=== PATIENT | female | born 1990 | race African-American/Black ===

== ENCOUNTER 2019-11-28 10:10 | Inpatient (IN) | payer OTHER, SELFPAY ==
[2019-11-28] VITALS (59 sets, daily range): BP systolic 71–132; BP diastolic 29–114; PULSE 63–179; RESP 16; TEMP 36.9–37.2; O2SAT 96–100; BMI 38.9
[2019-11-28] MEDS: LACTATED RINGERS 1,000 ML 125 ML IV CONT ×3 (11:10→14:03)
[2019-11-28] MEDS: AMPICILLIN 2 GM/NS 100 ML 2 GM/100 ML BAG IVPB (11:11)
[2019-11-28 11:21] LABS: Basophils Percent Auto 0.3 % (0.2-1.2); Eosinophils Percent Auto 0.5 % (0-4.4); Hematocrit 29.4 % (37.0-47.0); Hemoglobin 9.1 g/dL (12.0-15.0); Immature Granulocyte Absolute 0.03 K/mm3 (0.00-0.031); Immature Granulocyte Percent A 0.8 % (0-0.5); Lymphocytes Absolute Auto 1.21 K/mm3 (0.9-3.2); Lymphocytes Percent Auto 32.3 % (18.3-44.2); Mean Corpuscular Hemoglobin 24.3 pg (26-34); Mean Corpuscular Volume 78.4 fl (80-100); Mean Platelet Volume 10.3 fl (7.4-10.4); Monocytes Absolute Auto 0.3 K/mm3 (0.1-0.6); Monocytes Percent Auto 6.7 % (2.6-8.5); Neutrophils Absolute Auto 2.2 K/mm3 (1.3-6.7); Neutrophils Percent Auto 59.4 % (45.5-73.1); Platelet Count Result 240 k/mm3 (150-375); Red Blood Count 3.75 M/mm3 (4.2-5.4); White Blood Count 3.8 K/mm3 (4.5-10.0)
--- NOTE | 2019-11-28 12:06 | LDADM ---
This patient, Shanti May, was admitted to Labor/Delivery/Recovery 106 on 11/28/19 at 10:10. Plans for labor, pain management and were discussed with patient. Patient/family oriented to hospital policies and general routines including ID bracelet, bed and alarms, visiting hours, pain management, procedures, bathroom and other care routines, personal items, smoking policy, room service/diet and guest tray routines, security routines, and visiting hours. Patient/Family are encouraged to report perceived risks to care and to ask questions if they do not understand what they are told or what they should do. See OBIX for further documentation. Pt. was sent over from office for r/o ROM. ROM plus performed and positive. Clear fluid noted leaking from vagina. Pt. states she has been leaking for 2 days, not sure what time it started. Henok Patton CNM notified of ROM plus positive, orders to admit for labor, start abx, and augment with low dose pitocin.
[2019-11-28] MEDS: OXYTOCIN 30 UNITS/NS 500 ML 30 UNITS/500 ML BAG IV CONT (12:20)
--- NOTE | 2019-11-28 13:36 | P.PNAN_ITS ---
Anes - Eval Pre Procedure Procedure: Labor Pain Management Date/Time: 11/28/19 13:36 Surgeon: Luca Preop Diagnosis: Pain during Labor Pre Op Diagnosis: ROM Patient Data Age: 29 Gender: F Height: 5 ft 8 in Weight: 116 kg Last Vital Signs Temp 98.9 F 11/28/19 11:11 Pulse 77 11/28/19 13:00 BP 110/73 11/28/19 13:00 Allergies Allergy/AdvReac Type Severity Reaction Status Date / Time No Known Allergies Allergy Verified 11/11/19 12:30 Laboratory Tests 11/28/19 11/28/19 11/28/19 10:51 10:51 10:51 WBC 3.8 K/mm3 L K/mm3 (4.5-10.0) RBC 3.75 M/mm3 L M/mm3 (4.2-5.4) Hgb 9.1 g/dL L g/dL (12.0-15.0) Hct 29.4 % L % (37.0-47.0) MCV 78.4 fl L fl (80-100) MCH 24.3 pg L pg (26-34) MCHC 31.0 g/dl L g/dl (32-36) RDW 15.0 % H % (11.5-14.5) Plt Count 240 k/mm3 k/mm3 (150-375) MPV 10.3 fl fl (7.4-10.4) Immature Gran % (Auto) 0.8 % H % (0-0.5) Neut % (Auto) 59.4 % % (45.5-73.1) Lymph % (Auto) 32.3 % % (18.3-44.2) [place] % (Auto) 6.7 % % (2.6-8.5) Eos % (Auto) 0.5 % % (0-4.4) Baso % (Auto) 0.3 % % (0.2-1.2) Lymph # (Auto) 1.21 K/mm3 K/mm3 (0.9-3.2) [place] # (Auto) 0.3 K/mm3 K/mm3 (0.1-0.6) Eos # (Auto) 0.0 K/mm3 K/mm3 (0-0.3) Baso # (Auto) 0.0 K/mm3 K/mm3 (0.0-0.1) Abs Immat Gran (auto) 0.03 K/mm3 K/mm3 (0.00-0.031) Absolute Neuts (auto) 2.2 K/mm3 K/mm3 (1.3-6.7) Absolute Nucleated RBC 0.0 K/mm3 K/mm3 (0.0-0.012) Nucleated RBC % 0.0 % % (0.0-0.2) RPR Pending Blood Type AB Positive Antibody Screen Negative : gestational age (edc 12/11/19) Patient hx anesthesia problems: none Family hx anesthesia problems: none PMFSH Past Medical History Medical History (Updated 11/28/19 @ 13:36 by Hannah Doran CRNA) Obesity Tobacco abuse Family History Family History (Updated 11/11/19 @ 12:32 by Arun Naranjo RN) Other No pertinent family history Social History Social History Smoking status: Former smoker Substance use: never Gender identity (if verbalized by the patient): Female Sexual Orientation (if Verbalized by the Patient): Straight or Heterosexual Spiritual care concerns: No Exam Day of Procedure 11/28/19 13:36
[2019-11-28] MEDS: AMPICILLIN 1 GM/NS 50 ML 1 GM/50 ML BAG IVPB (15:10)
--- NOTE | 2019-11-28 17:37 | PM.OBPRVD ---
OB - Delivery Note Procedure Delivery date: 11/28/19 events: Prolonged Rupture of Membrane Intrapartal events: None Induction method: none Delivery augmentation: pitocin Delivery monitor: external FHT and external uterine Route of delivery: Episiotomy description: None Laceration description: None Estimated blood loss (mL): 112 Anesthesia type: Epidural Baby Date of : 11/28/19 Time of : 17:09 Weeks of gestation at delivery: 38 gender: Male Weight (pounds): 6 Weight (ounces): 7 presentation: vertex position: Left Occiput Anterior Placenta delivery description: Spontaneous cord vessel description: 3 Vessels, Nuchal Cord and Loose (delivered through) score one minute: 8 score five minutes: 9
[2019-11-28] MEDS: OXYTOCIN 30 UNITS/NS 500 ML 30 UNITS/500 ML BAG 125 UNITS IV CONT (17:54)
[2019-11-28] MEDS: LORATADINE 10 MG TABLET PO (18:43)
--- NOTE | 2019-11-28 19:44 | OBPPTRN ---
Patient transferred to post room #288 via wheelchair with in crib. Support person present. Oriented to unit, room, information board, rooming in, admission packet and security measures. Patient verbalizes understanding.
[2019-11-29] MEDS: IBUPROFEN 600 MG TABLET PO ×3 (00:28→15:28)
--- NOTE | 2019-11-29 05:25 | PM.OBPNVD ---
OB - PN: Subj Subjective Date/time seen: 11/29/19 05:25 Patient comments: no complaints, pain well controlled and other (Lochia similar to menses) [place] baby status: doing well OB - PN: Obj Data Labs CBC & Chem 7: 11/28/19 10:51 Labs: Laboratory Results - last 24 hr 11/28/19 11/28/19 10:51 10:51 WBC 3.8 L RBC 3.75 L Hgb 9.1 L Hct 29.4 L MCV 78.4 L MCH 24.3 L MCHC 31.0 L RDW 15.0 H Plt Count 240 MPV 10.3 Immature Gran % (Auto) 0.8 H Neut % (Auto) 59.4 Lymph % (Auto) 32.3 [place] % (Auto) 6.7 Eos % (Auto) 0.5 Baso % (Auto) 0.3 Lymph # (Auto) 1.21 [place] # (Auto) 0.3 Eos # (Auto) 0.0 Baso # (Auto) 0.0 Abs Immat Gran (auto) 0.03 Absolute Neuts (auto) 2.2 Absolute Nucleated RBC 0.0 Nucleated RBC % 0.0 Blood Type AB Positive Antibody Screen Negative OB - PN A/P Plan day: 1 (s/p vaginal delivery, doing well) Plan: routine care Time Spent With Patient Time: Total time spent is greater than 50% in coordination of care (as documented) at patient's floor/unit and/or counseling patient: Exam Const: General: no acute distress GI: Inspection: other (Fundus firm and nontender at umbilicus) GI Palp: Yes Soft to palpation and No Tenderness to palpation present (GI) Extrem: General: no edema
[2019-11-29] MEDS: ACETAMINOPHEN 325 MG TABLET 650 MG PO (05:37)
[2019-11-29 06:59] LABS: Hematocrit 27.1 % (37.0-47.0); Hemoglobin 8.4 g/dL (12.0-15.0)
[2019-11-29 08:25] VITALS: BP 105/67; PULSE 72; RESP 18; TEMP 36.5; O2SAT 100
--- NOTE | 2019-11-29 08:50 | WPDANLDPN2 ---
Anes-Prog Note L&D Date/Time: 11/29/19 08:50 Comfortable throughout: labor and delivery Neuraxial method: epidural Epidural/Spinal procedure site: clean & non-tender Neuro status: Neuro function grossly intact. Cardiovascular status: normal Respiratory status: normal Airway patency: baseline Mental status: baseline Post-Op hydration status: normal Vital Signs: Last Vital Signs Temp 98.6 F 11/28/19 20:00 Pulse 74 11/28/19 20:00 Resp 16 11/28/19 20:00 BP 123/59 L 11/28/19 20:00 Pulse Ox 100 11/28/19 15:35 I/O: Intake & Output 11/28/19 11/29/19 11/29/19 23:59 07:59 15:59 Intake Total 500 Output Total 220 Balance 280 Post-procedural complaints: none Patient feedback: Patient satisfied with anesthetic care.
[2019-11-29] MEDS: POLYSACCHARIDE IRON COMPLEX 150 MG CAPSULE PO ×2 (09:42→15:27)
[2019-11-29] MEDS: DOCUSATE SODIUM 100 MG CAPSULE PO ×2 (09:42→15:28)
[2019-11-29] MEDS: MULTIVIT/MIN/PREN/FOL AC/IRON TABLET 1 TAB PO (09:42)
--- NOTE | 2019-11-29 10:00 | PC.NURSE ---
Consult with pt., mother is listed and breast and bottle feeding. Mother reports she has bottle fed, has difficulties with latching. Offered assist with next feeding if mother chooses to attempt to breast.
[2019-11-29 10:46] LABS: Rapid Plasma Reagin Non-Reactive (NonReactive)
[2019-11-29 21:40] VITALS: BP 122/70; PULSE 76; RESP 18; TEMP 37.1
[2019-11-30] MEDS: IBUPROFEN 600 MG TABLET PO ×2 (00:21→07:33)
[2019-11-30] MEDS: MULTIVIT/MIN/PREN/FOL AC/IRON TABLET 1 TAB PO (07:32)
[2019-11-30] MEDS: POLYSACCHARIDE IRON COMPLEX 150 MG CAPSULE PO (07:32)
[2019-11-30] MEDS: DOCUSATE SODIUM 100 MG CAPSULE PO (07:32)
[2019-11-30 09:00] VITALS: BP 112/62; PULSE 81; RESP 16; TEMP 36.7; O2SAT 100
--- NOTE | 2019-11-30 10:38 | P.PNOB_ITS ---
OB - PN: Subj Subjective Date/time seen: 11/30/19 10:38 OB - PN: Obj Data Labs CBC & Chem 7: 11/29/19 06:16 Labs: Laboratory Results - last 24 hr 11/28/19 10:51 RPR Non-reactive OB - PN A/P Plan day: 2 Plan: routine care and discharge home Comments: Follow up in 4 weeks. Pt desires pp tubal. Discussed risk vs benefit in detail and pt desires to proceed. I have instructed her to come to office to sign consent within the week if she would like to schedule around 6 weeks post . Time Spent With Patient Time: Total time spent is greater than 50% in coordination of care (as do cumented) at patient's floor/unit and/or counseling patient: Time with patient: less than 15 minutes Review of Systems Review of Systems: All systems reviewed & are unremarkable except as noted in HPI and below Exam Narrative: Exam Narrative: Fundus firm and vaginal flow controlled. Const: General: comfortable Chest: Breast/axilla inspection: normal inspection of the breasts Cardio: Rate: regular rate GI: Auscultation: normal bowel sounds Psych: Appearance: grossly normal Affect: normal affect Attitude: cooperative Judgement: Good judgement present (Psych)
--- NOTE | 2019-11-30 18:26 | PC.NURSE ---
Informed pt that she should not drive herself home. She stated that she drove herself here and she was not going to leave her car here so she will drive herself home. This RN advised her not to again and she V/U'd and drove herself anyway.
--- NOTE | 2019-12-13 12:09 | P.DS_ITS ---
DS: Admitting Diagnosis Admitting Diagnosis Admitting Diagnosis: Encounter for supervision of normal , unspecified, third trimester OB - DS: Summary OB Procedures : None OB Procedures Intrapartum: Spontaneous Vag Delivery OB Procedures: : None Time Spent with Patient Time attestation: Total time spent providing and/or coordinating discharge services: Discharge Plan Discharge Attending physician on discharge: Lady Patton Consulting providers: Jaida Cifuentes ; Lady Patton Discharging Clinician: Lady Patton Patient Disposition: Home, Self-Care Activity: pelvic rest Diet: as tolerated Discharge Instructions: Education: Mom and Baby Guide Given to: Patient Follow-Up: Call your delivering provider's office for an appointment to be seen in: 4 weeks Mom and baby should come to the [facility] for the follow-up appointment. Appointment Date/Time: Monday12/03/2019 at 11:00 am Call [phone] if you are unable to keep your appointment time. BREAST CARE: 1. Wear a snug supportive bra. 2. For engorgement discomfort: Breast Feeding: A. Apply warm moist washcloths B. Express milk as needed to relieve engorgement C. Wear loose clothing Bottle Feeding: A. May apply ice packs 3. For sore nipples: A. Identify correct latch-on B. Apply warm moist washcloths before and after nursing C. Air dry nipples after nursing D. May apply Lansinoh cream to nipples EPISIOTOMY/PERINEAL CARE: 1. Until bleeding stops, use your cayla bottle after urinating 2. Change your pad frequently throughout the day 3. You may take sitz baths several times a day (fill your bathtub with warm water and soak for 20 minutes.) Do NOT bathe in the water 4. No tub baths until seen by your physician - You may shower ACTIVITY: 1. Rest as much as possible. 2. Do not exercise or lift anything heavier than your baby (such as laundry or other children.) 3. Avoid stairs or driving as much as possible. 4. Do not put anything into the vagina. No douching, tampons, or sexual activity until seen by physician. NOTIFY PHYSICIAN IF YOU HAVE ANY QUESTIONS OR IF ANY OF THE FOLLOWING SYMPTOMS OCCUR: 1. If your episiotomy or incision becomes red, swollen, or more painful than what you have experienced in the hospital. 2. If your vaginal bleeding becomes foul smelling. 3. If your vaginal bleeding becomes more heavy than a period or if your bleeding changes from pink to bright red. However, you may pass an occasional walnut- sized clot once or twice for the first week . 4. If you experience a sharp, shooting pain in you calves. 5. If you discover a hard, reddened area on your breast or if you experience flu-like symptoms. DIET: 1. Eat regular, well-balanced meals. 2. Drink plenty of fluids daily. If , drink to thirst. Stand Alone Forms: General Discharge Information Follow-up/Referrals: Lady Patton CNM [Certified Nurse Clinical Trials Assistant] - Discharge Medications: New polysaccharide iron complex 150 mg iron Capsule 150 mg PO BIDWM Qty: 60 RF: 0 Date of admission: 11/28/19 10:10 Primary Care Provider: PHYSICIAN,DINKEY ENGINE FIRER Admitting Provider: Genaro Segovia Discharge Date/Time: 11/30/19 15:05 Attending physician on admission: Genaro Segovia
== END 2019-11-30 15:05 | disposition home or self-care (01) | DRG 560 ==
LOC: ANHLDR 10:53 → ANHOB2 19:52
PROVIDERS: Advanced Practice Midwife; Admitting Provider Obstetrics & Gynecology; Visit Provider Obstetrics & Gynecology
DX: O42.92 Full-term premature rupture of membranes, unspecified as to length of time between rupture and onset of labor (principal); Z37.0 Single live birth; Z3A.38 38 weeks gestation of pregnancy; O99.824 Streptococcus B carrier state complicating childbirth; O69.81X0 Labor and delivery complicated by cord around neck, without compression, not applicable or unspecified; O99.214 Obesity complicating childbirth; E66.9 Obesity, unspecified; O99.02 Anemia complicating childbirth; D64.9 Anemia, unspecified
CPT/HCPCS: 36415; 85014; 85018; 85025; 86592; 86850; 86900; 86901; A9270; J0290; J2590; J2795; J7120